=== PATIENT | female | born 1975 | race Caucasian/White ===

== ENCOUNTER 2018-06-25 21:15 | Observation (INO) ==
[2018-06-25 22:01] LABS: Basophils % 0.3 %; Eosinophils # 0.2 K/mcL (0.0-0.6); Eosinophils % 2.3 %; Hemoglobin 14.3 g/dL (11.5-15.4); Immature Granulocytes % 0.2 % (0-4); Lymphocytes # 1.9 K/mcL (0.6-4.6); Lymphocytes % 28.4 %; Mean Corpuscular HGB Conc 33.3 g/dL (31.6-35.5); Mean Corpuscular Hemoglobin 29.7 pg (28.0-33.3); Mean Corpuscular Volume 89.2 fL (83.0-100.0); Mean Platelet Volume 8.7 fL (9.4-12.4); Monocytes # 0.4 K/mcL (0.0-1.3); Monocytes % 6.1 %; Neutrophils # 4.1 K/mcL (1.6-8.9); Platelet Count 217 K/mcL (140-400); Red Blood Count 4.82 M/mcL (3.82-4.97); Red Cell Distribution Width 12.9 % (11.5-14.5); Segmented Neutrophils % 62.7 %
[2018-06-25 22:02] LABS: Bilirubin,Urine Negative (Negative); Blood,Urine Negative (Negative); Clarity,Urine Clear (Clear); Color,Urine Yellow (Yellow); Glucose,Urine (UA) Normal (Normal); Ketones,Urine Negative (Negative); Leukocyte Esterase,Urine Negative (Negative); Nitrite,Urine Negative (Negative); Protein,Urine Negative (Neg-Trace); Specific Gravity,Urine 1.021 (1.010-1.025); Urobilinogen,Urine Normal (Normal)
[2018-06-25] MEDS ORDERED: Aspirin 325 MG TABLET PO ONE (22:51)
--- NOTE | 2018-06-25 22:51 | Emergency Department Note ---
Disposition Clinical Impression: Weakness Disposition: Admitted As Inpatient Condition: Good Referrals: Vee Quiñonez DO [Primary Care Provider] - Forms: ED Satisfaction Letter Time of Disposition: 23:02 General Adult HPI - General Chief complaint: ED Neuro Symptoms/Deficit Stated complaint: weak Time Seen by Provider: 06/25/18 21:32 Source: patient Limitations: no limitations Nursing Notes Reviewed: Yes Vital Signs Reviewed: Yes - History of Present Illness HPI Narrative: Female patient presenting to the emergency department as a possible stroke a lert. Around 8:00 approximately 2 hours ago she states that she got very weak. She states her speech has slowed. She feels very tired. She had an episode of this approximately 2 days ago as well. However she states it was not a significant at that time. He denies any chest pain or shortness of breath. She denies any visual disturbances currently. She states that she is feels very tired and weak. The states that she has been ambulatory and did ambulate to a wheelchair for him to a pressure into the hospital. She does have a history of a stroke several years ago that was unprovoked and there is no known source currently. She does take gabapentin nightly for seizures. These are considered Seizures. She Also Has a History of Depression and Is on Medication for That As Well. 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 She denies any trauma. She denies being on any type of blood thinners. She denies any other fevers or chills. She denies any shortness of breath or chest pain. She denies any abdominal pain nausea vomiting or diarrhea. Pain Scale: 0 - Related Data Allergies Allergy/AdvReac Type Severity Reaction Status Date / Time No Known Allergies Allergy Verified 06/25/18 21:25 All systems ED: reviewed and negative except as stated. Review of Systems: As Per HPI Constitutional: Denies: fever, chills Eyes: Denies: vision change ENT ED: Denies: ear pain, throat pain, congestion Cardiovascular: Denies: chest pain, palpitations, syncope Respiratory: Denies: cough, dyspnea, wheezes, sputum production Gastrointestinal: Denies: abdominal pain, nausea, vomiting, diarrhea Genitourinary: Denies: urgency, dysuria, frequency, hematuria Musculoskeletal: Denies: back pain, neck pain Integumentary: Denies: rash, abrasion, lesions Neurological: Reports: weakness. Denies: headache, numbness, paresthesias Past Medical History - Past Medical History Attestation: Yes The following information was validated with the patient. Source: patient Medical history: Reports: TIA Psychiatric history: Reports: no psych history - Social History Smoking Status: Never smoker Smokeless Tobacco Status: No Alcohol use: Reports: rarely Drug use: Reports: none Physical Exam - General Limitations: no limitations General appearance: alert, in no apparent distress - Head Head exam: atraumatic, normocephalic, normal inspection - Eye Eye exam: Present: normal appearance, PERRL, EOMI - ENT ENT exam: normal exam, normal oropharynx, mucous membranes moist - Neck Neck exam: Present: normal inspection, full ROM, trachea midline - Chest Chest inspection: Present: normal inspection, symmetric chest wall rise - Respiratory Respiratory exam: Present: normal lung sounds bilaterally. Absent: respiratory distress, accessory muscle use - Cardiovascular Cardiovascular exam: Present: regular rate, normal rhythm, normal heart sounds - Abdominal Exam Abdominal exam: Present: soft, Non-Tender. Absent: tenderness, distention, guarding, rebound, rigidity, organomegaly, Griffin's sign, Rovsing's sign, tenderness at McBurney's Point - Extremities Exam Extremities exam: Present: normal capillary refill, other (lower extremities weak. normal sensation. can lift against gravity. Upper extremites witout defecit). Absent: tenderness, calf tenderness - Neurological Exam Neurological exam: Present: alert, oriented X3, other (slowed speech) - Psychiatric Psychiatric exam: Present: normal affect, normal mood - Skin Skin exam: Present: warm, dry, intact, normal color. Absent: rash Course Course Narrative: Patient has no lateralizing neurologic deficits. Cranial nerves II through XII are intact. She is mentating appropriately. She does have a fast beat nystagmus to the left and slow to the right. She does have a history of a temporal stroke. We will get basic lab workup on patient and a head CT at this time. I do not believe that she is a TPA candidate as she has no lateralizing deficits. She does have lower extremity weakness and over she attempts to raise them off the bed she can keep it raised for 10 seconds however she has 4 out of 5 muscle strength in her lower extremity. No deficits in her upper x-rays. No sensation deficits. - Reevaluation(s) Reevaluation #1: Patient reevaluated. She states that her symptoms are almost completely resolved. She states that she is about 80% back to normal. She has full range of motion of her lower extremities. Strength is 5 out of 5 in all 4 extremities. She is mentating appropriately. There is a concern on the CT for possible subacute stroke in the temporal area. Patient states this is where her previous one was as well. I did speak with the radiologist and he does not believe that it is acute as an has happened in the last 3 hours. I discussed this with the patient and she does agree for admission for follow-up MRI. This is the recommendation on the CT. We will admit at this time. Time: 22:50 - Consultations Consultation #1: Dr Parson accepted Pt in stable condition. Time: 23:27 Vital Signs Temperature 0 F L 06/25/18 21:20 Pulse Rate 78 06/25/18 21:20 Respiratory Rate 18 06/25/18 21:20 Blood Pressure 158/103 06/25/18 21:20 O2 Sat by Pulse Oximetry 100 06/25/18 21:20 Temperature 97.6 F 06/25/18 21:30 Pulse Rate 67 06/25/18 23:20 Respiratory Rate 20 06/25/18 23:20 Blood Pressure 110/72 06/25/18 23:20 O2 Sat by Pulse Oximetry 98 06/25/18 22:09 Oxygen Delivery Oxygen Delivery Room Air Medical Decision Making - Medical Records Medical records reviewed: Yes I reviewed the patient's medical records. - Lab Data Lab results reviewed: Yes I reviewed the patient's lab results. Result diagrams: 06/25/18 21:30 06/25/18 21:30 Lab Results 06/25/18 06/25/18 06/25/18 Range/Units 21:30 21:30 21:49 WBC 6.5 (4.3-11.1) K/mcL RBC 4.82 (3.82-4.97) M/mcL Hgb 14.3 (11.5-15.4) g/dL Hct 43.0 (35.3-44.9) % MCV 89.2 (83.0-100.0) fL MCH 29.7 (28.0-33.3) pg MCHC 33.3 (31.6-35.5) g/dL RDW 12.9 (11.5-14.5) % Plt Count 217 (140-400) K/mcL MPV 8.7 L (9.4-12.4) fL Immature Gran % 0.2 (0-4) % Seg Neutrophils % 62.7 % Lymphocytes % 28.4 % Monocytes % 6.1 % Eosinophils % 2.3 % Basophils % 0.3 % Neutrophils # 4.1 (1.6-8.9) K/mcL Lymphocytes # 1.9 (0.6-4.6) K/mcL Monocytes # 0.4 (0.0-1.3) K/mcL Eosinophils # 0.2 (0.0-0.6) K/mcL Basophils # 0.0 (0.0-0.2) K/mcL Sodium 138 (136-145) mEq/L Potassium 3.8 (3.5-5.1) mEq/L Chloride 103 (98-107) mEq/L Carbon Dioxide 27 (23-29) mEq/L BUN 13 (6-20) mg/dL Creatinine 0.84 (0.60-1.20) mg/dL Est GFR ( Amer) > 60 (> 60) Est GFR (Non-Af Amer) > 60 (> 60) BUN/Creatinine Ratio 15 (6-26) Glucose 87 (70-105) mg/dL Calculated Osmolality 285 (280-300) Calcium 9.2 (8.6-10.3) mg/dL Urine Color Yellow (Yellow) Urine Clarity Clear (Clear) Urine pH 7.0 (5.0-8.0) pH Units Ur Specific [place] 1.021 (1.010-1.025) Urine Protein Negative (Neg-Trace) mg/dL Urine Glucose (UA) Normal (Normal) mg/dL Urine Ketones Negative (Negative) mg/dL Urine Blood Negative (Negative) Urine Nitrite Negative (Negative) Urine Bilirubin Negative (Negative) Urine Urobilinogen Normal (Normal) mg/dL Ur Leukocyte Esterase Negative (Negative) Ur Culture Indicated? NO (NO) Urine Test (Negative) 06/25/18 Range/Units 21:49 WBC (4.3-11.1) K/mcL RBC (3.82-4.97) M/mcL Hgb (11.5-15.4) g/dL Hct (35.3-44.9) % MCV (83.0-100.0) fL MCH (28.0-33.3) pg MCHC (31.6-35.5) g/dL RDW (11.5-14.5) % Plt Count (140-400) K/mcL MPV (9.4-12.4) fL Immature Gran % (0-4) % Seg Neutrophils % % Lymphocytes % % Monocytes % % Eosinophils % % Basophils % % Neutrophils # (1.6-8.9) K/mcL Lymphocytes # (0.6-4.6) K/mcL Monocytes # (0.0-1.3) K/mcL Eosinophils # (0.0-0.6) K/mcL Basophils # (0.0-0.2) K/mcL Sodium (136-145) mEq/L Potassium (3.5-5.1) mEq/L Chloride (98-107) mEq/L Carbon Dioxide (23-29) mEq/L BUN (6-20) mg/dL Creatinine (0.60-1.20) mg/dL Est GFR ( Amer) (> 60) Est GFR (Non-Af Amer) (> 60) BUN/Creatinine Ratio (6-26) Glucose (70-105) mg/dL Calculated Osmolality (280-300) Calcium (8.6-10.3) mg/dL Urine Color (Yellow) Urine Clarity (Clear) Urine pH (5.0-8.0) pH Units Ur Specific [place] (1.010-1.025) Urine Protein (Neg-Trace) mg/dL Urine Glucose (UA) (Normal) mg/dL Urine Ketones (Negative) mg/dL Urine Blood (Negative) Urine Nitrite (Negative) Urine Bilirubin (Negative) Urine Urobilinogen (Normal) mg/dL Ur Leukocyte Esterase (Negative) Ur Culture Indicated? (NO) Urine Test Negative (Negative) - Radiology Data Radiology results reviewed: Yes I reviewed the patient's radiology results. Head CT 06/25/18 21:41 IMPRESSION: Focal area of hypoattenuation in the right temporal lobe may represent an area of encephalomalacia from remote infarct versus an acute/subacute area of infarct. MRI with diffusion-weighted imaging would be more sensitive for the evaluation of acute/subacute infarct. D/ / 06/25/2018 22:30:29 Edd Mauricio MD / sw alters Interpreting Provider: Edd Mauricio MD - EKG Data EKG #1 EKG attestation: Yes I reviewed and interpreted this EKG. EKG results narrative: Normal sinus rhythm at rate 73. IA interval is 160. QRS duration is 77. QT is 43. QTC is 445. No signs of acute ischemia. No signs of debris. We are Brug ada. Good R-wave progression. Does have low voltage. No significant change from previous EKG dated 10/07/2002. Attestation Statement - Attestation Attestation: I, Michael Kruse, examined this patient and my medical decision-making was reviewed with the PROPERTY MANAGEMENT COORDINATOR/PA/Advanced Practice Nurse/Resident Physician. I agree with the documented findings, disposition and treatment plan as described except to the extent set forth below. 43-year-old female but emergency department for evaluation of weakness and altered mental status. Patient states she was sitting at work when she had acute onset of weakness, generalized pain and sweaty palms. During the evaluation the patient is speaking slowly but does not have difficulty finding words, she has no focal neurologic deficits on the exam. Pupils were equal and reactive to light and have full extraocular range of motion. Patient states she has had multiple episodes similar to this however this one has lasted longer than previous episodes. She denies a specific trigger for her previous episodes. She states that she was not anxious or agitated prior to the onset of symptoms. Denies recent trauma, fevers, chills, EtOH or IV drug abuse. We obtained a CT of the head which showed likely previous CVA which the patient admitted to having on previous scans. Patient continues to have no focal neurologic deficits. She will be admitted to the hospital for further care and evaluation. NIH Stroke Scale - Level of Consciousness LOC: Alert - LOC Questions LOC Questions: Answers both correctly - LOC Commands LOC Commands: Performs both correctly - Best Gaze Best Gaze: Normal - Visual Visual: No visual loss - Facial Palsy Facial Palsy: Normal - Motor Arms Motor Arm-Left: No drift for 10 seconds Motor Arm-Right: No drift for 10 seconds - Motor Legs Motor Leg-Left: No drift for 5 seconds Motor Leg-Right: No drift for 5 seconds - Limb Ataxia Limb Ataxia: Normal, No Ataxia - Sensory Sensory: Normal - Best Language Best Language: No aphasia - Dysarthria Dysarthria: Normal - Extinction and Inattention Extinction and Inattention: Normal - NIHSS Total Score NIHSS Total Score: 0
[2018-06-25 23:22] LABS: BUN/Creatinine Ratio 15 (6-26); Blood Urea Nitrogen 13 mg/dL (6-20); Calcium 9.2 mg/dL (8.6-10.3); Carbon Dioxide 27 mEq/L (23-29); Chloride 103 mEq/L (98-107); Glucose 87 mg/dL (70-105); Osmolality,Calculated 285 (280-300); Potassium 3.8 mEq/L (3.5-5.1); Sodium 138 mEq/L (136-145); eGFR For Non-African Americans > 60 (> 60)
[2018-06-25] MEDS ORDERED: Gadolinium Contrast Agent (WT Based) IV PRN (23:40)
--- NOTE | 2018-06-25 23:55 | Internal Med History&Physical ---
Date of Encounter: 06/25/18 Time of Encounter: 23:55 Internal Medicine - H&P: HPI Chief complaint: weakness Admitted From: Home Plans for Post Hospital Care: Home History of present illness: Ms. Hopkins is a 43 year old woman who reports a history of depression, absence seizures for which she takes gabapentin at night time? as well as being diagnosed with a stroke many years ago when she was being evaluated for "spells ". She presents now to the emergency department as a possible stroke alert. Around 8:00pm while at work she states that she got very weak. She states her speech has slowed. She felt overly fatigued and shaky with cold sweats. She reported having a similar episode 2 days prior but not as severe. On arrival here it is reported that she had slow but not slurred speech but there were no focal deficits. Her vitals were within normal limits. Head CT was done which showed an area of encephalomalacia which correlates with her old stroke however they were unable to rule out an acute or subacute area of infarction overlying the area of encephalomalacia as per discussion with the radiologist and therefore recommended pursuing an MRI. On my assessment she is sitting up in bed in no acute distress or reports feeling back to baseline. She denies chest pain, dyspnea, fever, chills, headache, lightheadedness or dizziness. Ordered no visual, olfactory or auditory hallucinations. She denies having any focal weaknesses at any point in time stating that she just felt her whole body: Weak all of a sudden. She is admitted for ongoing observation. Past medical history as indicated above. Social history: denies smoking and illicit drug use. Surgical history: Hysterectomy due to endometriosis. Family history: CVA maternal aunt and grandmother. All systems reviewed and negative except as indicated above. Past Med Surg Social Fam HX - Past Medical History Medical history: TIA Psychiatric history: no psych history - Social History Smoking Status: Never smoker Smokeless Tobacco Status: No Alcohol use: rarely Drug use: none - Family History Mother Living Status: Still Living Maternal Grandmother Hx Family Neuromuscular Disorders: Yes (stroke) Hx Family Neurologic Disorders: Yes Internal Medicine - H&P: Meds Gabapentin [Neurontin] 200 mg PO HS 06/25/18 [History] Sertraline [Zoloft] 100 mg PO DAILY 06/25/18 [History] Allergy/AdvReac Type Severity Reaction Status Date / Time No Known Allergies Allergy Verified 06/25/18 21:25 All Systems PM: A 10-system review of systems was performed and is negative for pertinent findings except as documented above in the HPI. - Constitutional Vitals: Temp Pulse Resp BP Pulse Ox 97.6 F 67 20 110/72 98 06/25/18 21:30 06/25/18 23:20 06/25/18 23:20 06/25/18 23:20 06/25/18 22:09 Exam: Vitals: Reviewed General: Well-developed white female in NAD Skin: Warm and supple HEENT: Moist mucous membranes. No conjunctivae pallor. Neck: No lymphadenopathy. No JVD. No carotid bruits. No palpable thyroid. Chest: Normal thoracic expansion. Normal breath sounds. Clear to auscultation. Heart: Normal S1 & S2; rhythmic. No rubs or murmurs. Abdomen: Non-distended, soft and non-tender to palpation. No peritoneal reaction. Extremities: No clubbing, cyanosis or edema. No calf tenderness. Normal distal pulses. Neurological: Awake, alert and oriented to person, place and time. No focal deficits. Psych: Affect appropriate. Internal Med - H&P Results - Labs CBC & Chem 7: 06/25/18 21:30 06/25/18 21:30 Labs: Short CBC 06/25/18 Range/Units 21:30 WBC 6.5 (4.3-11.1) K/mcL Hgb 14.3 (11.5-15.4) g/dL Hct 43.0 (35.3-44.9) % Plt Count 217 (140-400) K/mcL Neutrophils # 4.1 (1.6-8.9) K/mcL BMP 06/25/18 21:30 Sodium 138 Potassium 3.8 Chloride 103 Carbon Dioxide 27 BUN 13 Creatinine 0.84 Glucose 87 Calcium 9.2 Urine 06/25/18 Range/Units 21:49 Urine Color Yellow (Yellow) Urine Clarity Clear (Clear) Urine pH 7.0 (5.0-8.0) pH Units Ur Specific [place] 1.021 (1.010-1.025) Urine Protein Negative (Neg-Trace) mg/dL Urine Glucose (UA) Normal (Normal) mg/dL - Impressions ITS Impressions Head CT 06/25/18 21:41 IMPRESSION: Focal area of hypoattenuation in the right temporal lobe may represent an area of encephalomalacia from remote infarct versus an acute/subacute area of infarct. MRI with diffusion-weighted imaging would be more sensitive for the evaluation of acute/subacute infarct. D/ / 06/25/2018 22:30:29 Edd Mauricio MD / anna Interpreting Provider: Edd Mauricio MD - Assessment and plan (1) Weakness Current Visit: Yes Status: Acute Assessment and plan: Unclear etiology; the symptoms are not highly suggestive of a focal infarction although based on her history her prior stroke was equally detected with atypical symptoms. Hypoglycemia which appears more consistent as ruled out with a normal glucose level and her symptoms resolved without needing dextrose. It does not appear to have been a seizure episode as well as she was aware of the situation. MRA head and neck and brain MRI is ordered for tomorrow for better assessment. If negative can be followed by neurology as an outpatient otherwise if there is an acute finding we shall need their input here in the hospital. (2) Mood disorder Current Visit: Yes Status: Acute Assessment and plan: We will continue sertraline daily. (3) History of seizure Current Visit: Yes Status: Acute Assessment and plan: The patient reportedly takes gabapentin at that time for this issue which she describes as episodes of unawareness. (4) History of CVA (cerebrovascular accident) Current Visit: Yes Status: Acute Assessment and plan: Area of encephalomalacia correlating with a prior infarction is noted on CAT sca n. It appears to have been cryptogenic in origin. She is not on any antiplatelet therapy and there is no history of any cardiac anatomic anomalies. (5) DVT prophylaxis Current Visit: Yes Status: Acute Assessment and plan: Subcutaneous heparin is indicated. - Time Spent With Patient Total time spent is greater than 50% in coordination of care (as documented) at patient's floor/unit and/or counseling patient: Greater than 35 minutes
[2018-06-26] MEDS: Gabapentin 100 MG CAPSULE PO SCH ×2 (00:40→21:01)
[2018-06-26 05:33] LABS: Alanine Aminotransferase 50 Units/L (7-52); Albumin 3.9 g/dL (3.5-5.7); Albumin/Globulin Ratio 1.4 (1.1-2.2); Alkaline Phosphatase 70 Units/L (34-104); Aspartate Amino Transferase 31 Units/L (13-39); BUN/Creatinine Ratio 17 (6-26); Bilirubin,Total 0.3 mg/dL (0.3-1.0); Blood Urea Nitrogen 15 mg/dL (6-20); Calcium 9.1 mg/dL (8.6-10.3); Carbon Dioxide 31 mEq/L (23-29); Chloride 103 mEq/L (98-107); Cholesterol 199 mg/dL (< 200); Globulin 2.7 g/dL (2.4-3.5); Glucose 92 mg/dL (70-105); HDL Cholesterol 67 mg/dL (40-59); LDL Cholesterol,Calculated 98 mg/dL (0-99); Osmolality,Calculated 292 (280-300); Potassium 4.1 mEq/L (3.5-5.1); Sodium 141 mEq/L (136-145); Total Protein 6.6 g/dL (6.4-8.9); Triglycerides 170 mg/dL (< 150); eGFR For Non-African Americans > 60 (> 60)
[2018-06-26] MEDS: *HR* Heparin 5,000 UNIT/ML VIAL SQ SCH ×3 (05:53→21:01)
[2018-06-26 08:10] LABS: Estimated Average Glucose 105 mg/dl; Hemoglobin A1C 5.3 %
[2018-06-26] MEDS: Aspirin Enteric Coated 81 MG Tablet PO SCH (10:52)
[2018-06-26] MEDS: amLODIPine 5 MG TABLET PO SCH (10:52)
--- NOTE | 2018-06-26 14:52 | Electrocardiograph Report ---
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
[2018-06-26] MEDS ORDERED: Acetaminophen 325 MG TABLET PO PRN (17:39)
--- NOTE | 2018-06-26 18:08 | Neurology - Consult Note ---
Date of Encounter: 06/26/18 Time of Encounter: 17:03 Assessment and Plan (1) Generalized muscle weakness Current Visit: Yes Status: Acute This patient who had an history of previous a stroke and seizures admitted with this generalized weakness started yesterday all of a sudden gradually improving currently her upper extremity weakness has resolved but she still feeling weak in the lower extremities The symptoms seems to be more generalized without any focal findings on neurological examination in particularly no history or exam findings to be sugge stive of a stroke She already had an MRI of the brain as well as MRA of the head and neck did not show any acute infarct it did shows evidence of previous infarct that she had it about 4 years ago As far as her current symptoms seems to be more generalized Certainly with generalized weakness and some paresthesias Guillain-Lufkin syndrome/GBS Is in the differential but at the moment exam findings especially with normal reflexes seems to be less likely, But as her symptoms started yesterday we still have to keep an eye on the symptoms so it would not get worse Though usually the course is not as rapid and at the same time with improvement of symptoms in the upper extremity it seems to be less likely But again it might be too early to definitely exclude this possibility out *Would suggest that we should continue to monitor her at the same time continue to monitor her breathing her respiratory status At the moment she is not having any symptoms of breathing or any other cranial nerve dysfunction. 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 Hopkins is a 43 year old female with history of depression, absence seizures, cryptogenic a stroke about 4 years ago without any residual deficit Admitted via emergency department because of generalized weakness According to the patient she was at work at the [employer] and around 8 PM last night she noted that she is been very weak she was having difficulty with talking as she was talking very slow but it was not slurred she was having hard time in holding onto things and noted to have generalized weakness without much focal motor symptoms because of the symptoms she called her who picked her up from the hospital and then later on she was evaluated in the emergency room by the time she got to the emergency room she she got more weaker and felt shaky and had cold sweats. She had a CT scan that shows an old lady of infarct and later on she had an MRI of the brain that did not show any acute infarct did shows evidence of encephalomalacia in the right temporal lobe. She had a previous infarct She continued to have these generalized to weakness but without any focal motor weakness she denies any double vision she denies any difficulty with swallowing she did have some numbness and paresthesias but not very prominent her weakness is more generalized now her upper extremities weakness has improved she still having some weakness in the lower extremities And has a history of flow cryptogenic infarct about 4 years ago when she was evaluated in [place] on imaging studies she was found to have an infarct she did not have any residual deficit from it patient also has some abscense Seizures, seen Dr. Thorntno in [place] , who started her on gabapentin and she been taking at night and since that she did not have any further seizures. She denies any recent illness and particularly no cold and flu symptoms She did have a similar spell about a week ago which lasted several hours and then resolving spontaneously Past Med Surg Social Fam HX - Past Medical History Medical history: TIA Psychiatric history: no psych history - Past Surgical History Surgical History: hysterectomy - Social History Smoking Status: Never smoker Smokeless Tobacco Status: No Alcohol use: rarely Drug use: none - Family History Mother Living Status: Still Living Maternal Grandmother Hx Family Neuromuscular Disorders: Yes (stroke) Hx Family Neurologic Disorders: Yes Medications and Allergies Gabapentin [Neurontin] 200 mg PO HS 06/25/18 [History] Sertraline [Zoloft] 100 mg PO DAILY 06/25/18 [History] Allergy/AdvReac Type Severity Reaction Status Date / Time No Known Allergies Allergy Verified 06/25/18 21:25 All Systems: The remainder of the systems were reviewed and are negative Physical Examination - Vital Signs Vital Signs: Initial Vital Signs Temp Pulse Resp BP Pulse Ox 0 F L 78 18 158/103 100 06/25/18 21:20 06/25/18 21:20 06/25/18 21:20 06/25/18 21:20 06/25/18 21:20 - Exam Exam: GENERAL: Comfortable in no acute distress HEENT: Normal LUNGS: CTA HEART: RRR, S1 S2 Audible, no murmur EXTREMITIES: No Pedal edema. DETAILED NEUROLOGICAL EXAMINATION: MENTAL STATUS: Oriented to person, place, date and situation. Memory: knows the President, Aware of recent events Recent Memory Intact Cranial Nerve Examination: CN - II: Visual Acuity, Field of Vision Normal, Fundus examination: No disk edema, Pupils- size shape reaction to light and accommodation: All normal. CN III, IV, : External ocular movements were intact, Pupils were reactive, Nodrooping of the eyelids CN V: Sensation over the face to light touch and pinprick all normal. Corneal reflexes not tested, jaw jerk normal. CN VII: No facial asymmetry, no flattening of nasolabial folds, no difficulty in closing the eyes, no loss of forehead wrinkles, no difficulty in eye-closure, frowning raising eyebrows. CNVIII: No significant hearing loss CN IX, X: Uvula centralized not deviated, Gag reflex: Not tested CN X1: Sternocleidomastoid, trapezius, normal or evidence of any weakness. CN X11: No Dysarthria, no wasting or fibrilation f tongue muscles, no deviation, tongue muscle strength normal. Motor examination: No hypertrophy, tone was normal, power grade 0-5 Upper limbs Proximal- No difficulty in lifting the arms above the head. Distal- No weakness in distal muscles On formal testing 5/5 all over Lower limbs On formal testing decrease in the strength 4/4 but without any focal findings Coordination: [id number] normal. Target pursuit normal finger tapping normal, Rapid alternating moment of wrist normal Sensory system: Superficial sensations- Touch normal. Pain- Pinprick, Temperature all normal, Deep sensation normal, Joint position sense normal. Cortical sensation, Tactile discrimination, localization and extinction all normal. Deep tendon reflexes. Symmetrical bilateral and brisk at the knees 1/1 at the ankles, No evidence of Babinski. No sign of meningeal irritation Gait Examination: Deferred - Constitutional General appearance: comfortable - Neurologic Sensorimotor examination: intact Detailed motor examination: grossly full strength in all extremities Motor examination - right side: 4/5: hip flexors, tibialis Anterior, quadriceps, toe extension (EHL), plantarflexion, 5/5: deltoids, biceps, triceps, wrist flexion, wrist extension, herpetology teacher Motor examination - left side: 4/5: hip flexors, herpetology teacher, quadriceps, 5/5: deltoids, biceps, triceps, wrist flexion, wrist extension, tibialis Anterior, toe extension (EHL), plantarflexion Detailed sensory examination: intact Reflex and gait examination: intact Reflexes: Biceps: 1+, Triceps: 1+, Brachioradialis: 1+, Patella: 2+, Achilles: 1 + Mental Status Examination: awake, alert, oriented to person, oriented to place, oriented to time, follows commands appropriately, answers questions appropriately, no agnosia, no aphasia, no aproxia Cranial nerve examination: PERRL, EOMI, visual talavera intact, corneal reflexes brisk symmetrically, sensory to face intact, mastication intact, no facial asymmetry is present, no dysarthria, hearing is intact symmetrically, soft palate elevates bilaterally upon phonation, gag reflex intact, flexes SCM and trapezius muscles symmetrically with full power, tongue protrudes midline, no atrophy or facial fasiculations present Cerebellar examination: no dysmetria Results - Laboratory Findings CBC and BMP: 06/25/18 21:30 06/26/18 04:35 Abnormal lab findings: Abnormal lab results MPV 8.7 fL (9.4-12.4) L 06/25/18 21:30 Carbon Dioxide 31 mEq/L (23-29) H 06/26/18 04:35 POC Glucose 101 mg/dL (70-99) H 06/25/18 21:21 Triglycerides 170 mg/dL (< 150) H 06/26/18 04:35 VLDL Cholesterol, Calc 34 mg/dL (< 31) H 06/26/18 04:35 HDL Cholesterol 67 mg/dL (40-59) H 06/26/18 04:35 - Diagnostic Findings Additional findings: MRI of the brain shows Encephalomalacia and gliosis are noted along the right superior and middle temporal gyri, along the superior temporal sulcus. 2. No evidence of an acute infarct. 3. Minimal chronic microvascular white matter ischemic disease, increased. 4. Unremarkable MRA of the neck. 5. Unremarkable MRA of the brain. Consult Discharge Plan - Plan Referrals: Vee Quiñonez DO [Primary Care Provider] - (Your appointment has been requested. Our offices will call you with an appointment time and date.)
[2018-06-26 19:43] LABS: Thyroid Stimulating Hormone 1.952 mcIU/mL (0.340-5.600)
[2018-06-26 19:53] LABS: Folate 8.2 ng/mL (3.0-16.0)
[2018-06-27] MEDS: *HR* Heparin 5,000 UNIT/ML VIAL SQ SCH (05:33)
[2018-06-27 07:51] VITALS: BP 106/64
[2018-06-27] MEDS: Aspirin Enteric Coated 81 MG Tablet PO SCH (10:00)
[2018-06-27] MEDS: amLODIPine 5 MG TABLET PO SCH (10:00)
--- NOTE | 2018-06-27 10:23 | Neurology Progress Note ---
Addendum entered and electronically signed by Faisal Hart DO 06/30/18 13:39: please delete this note. Attending did not see the patient before patient was discharged. Original Note: Date of Encounter: 06/27/18 Time of Encounter: 10:21 Assessment and Plan (1) Generalized muscle weakness Current Visit: Yes Status: Resolved Today patient's strength exam shows improved strength in all 4 extremities. Pat nina also denies numbness or difficulty eating. She is breathing without any distress and not requiring any oxygen. MRA of the neck, brain are unremarkable. Brain MRI is negative for acute infarct. There is noted encephalomalacia and gliosis of the right superior middle temporal gyri along the superior temporal sulcus. (2) History of seizure Current Visit: Yes Status: Chronic Continue medication. (3) History of CVA (cerebrovascular accident) Current Visit: Yes Status: Chronic (4) DVT prophylaxis Current Visit: Yes Status: Chronic Subjective Principal diagnosis: Generalized muscle weakness Interval history: Patient reports that her generalized weakness has improved. She is able to lift bilateral upper and lower extremities. 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 She denies any numbness. She is able to eat without having dysphagia, regurgitation. She denies any shortness of breath or difficulty breathing. Objective - Constitutional Vitals: Temp Pulse Resp BP Pulse Ox 97.5 F L 62 18 106/64 94 06/27/18 07:40 06/27/18 07:40 06/27/18 07:40 06/27/18 07:40 06/27/18 07:40 - Neurological Exam Sensorimotor examination: Present: intact Motor Examination: Present: grossly full strength in all extremities Motor examination - right side: 4/5: deltoids, biceps, triceps, wrist flexion, wrist extension, collating machine operator, hip flexors, tibialis Anterior, quadriceps, toe extension (EHL), plantarflexion Motor examination - left side: 4/5: deltoids, biceps, triceps, wrist flexion, wrist extension, hip flexors, collating machine operator, quadriceps, tibialis Anterior, toe extension (EHL), plantarflexion Sensation intact: Present: intact Reflex and gait examination: intact Reflexes: Biceps: 2+, Triceps: 2+, Brachioradialis: 2+, Patella: 2+, Achilles: 2+ Mental Status Examination: Present: awake, alert, oriented to person, oriented to place, oriented to time, follows commands appropriately, answers questions appropriately, no agnosia, no aphasia, no aproxia Cranial nerve examination: Present: PERRL, EOMI, visual talavera intact, sensory to face intact, mastication intact, no facial asymmetry is present, no dysarthri a, hearing is intact symmetrically, soft palate elevates bilaterally upon phonation, flexes SCM and trapezius muscles symmetrically with full power, tongue protrudes midline, no atrophy or facial fasiculations present Cerebellar examination: Present: no dysmetria Results - Laboratory Findings CBC and BMP: 06/25/18 21:30 06/26/18 04:35 Abnormal lab findings: Abnormal lab results MPV 8.7 fL (9.4-12.4) L 06/25/18 21:30 Carbon Dioxide 31 mEq/L (23-29) H 06/26/18 04:35 Triglycerides 170 mg/dL (< 150) H 06/26/18 04:35 VLDL Cholesterol, Calc 34 mg/dL (< 31) H 06/26/18 04:35 HDL Cholesterol 67 mg/dL (40-59) H 06/26/18 04:35 25-OH Vitamin D Total 26 ng/mL (30-80) L 06/26/18 18:35 Consult Discharge Plan - Plan Referrals: Vee Quiñonez, [Primary Care Provider] - (Your appointment has been requested. Our offices will call you with an appointment time and date.)
--- NOTE | 2018-06-27 10:58 | Discharge Summary ---
Orders not resulted at time of discharge: Pending orders 06/27/18 00:55 Lupus Anticoagulant Panel Stat Date of Encounter: 06/27/18 Time of Encounter: 10:53 - Discharge Diagnosis (1) Generalized muscle weakness Priority: Primary Status: Resolved (2) History of seizure Priority: Secondary Status: Chronic (3) History of CVA (cerebrovascular accident) Priority: Secondary Status: Chronic (4) DVT prophylaxis Priority: Secondary Status: Chronic Hospital course: Ms. Hopkins is a 43 year old female history of depression, absence seizures, CVA about a year ago. Patient presented to the emergency room complaining of generalized weakness, and slow speech. She reported that about a week ago she had a similar episode of generalized fatigue, but it did not last as long as this one and she decided to come to the ED. Patient work up for possible CVA. Brain MRI, head and neck MRA done negative for acute stroke. Discussed with neurologist and agreed on discharging the patient as her symptoms have resolved. Patient is hemodynamically stable to be discharged home. - Time Spent with Patient Total time spent providing and/or coordinating discharge services: - Discharge Medications Home Medications: Gabapentin [Neurontin] 200 mg PO HS 06/25/18 [History] Sertraline [Zoloft] 100 mg PO DAILY 06/25/18 [History] Estradiol [Estrace] 1 mg PO DAILY 06/26/18 [History] Allergies/Adverse Reactions: Allergy/AdvReac Type Severity Reaction Status Date / Time No Known Allergies Allergy Verified 06/25/18 21:25 Date of admission: 06/25/18 23:35 Primary care physician: Atul Miles Consults: 06/26/18 16:58 Consult to Neurology [CONS] Routine Consulting Provider: Neurology [facility] Reason for Consult: abnormal MRI MRA generalized weakness HX of CVA Time Notified: 16:59 Call Completed: Yes - Constitutional Vitals: Temp Pulse Resp BP Pulse Ox 97.5 F L 62 18 106/64 94 06/27/18 07:40 06/27/18 07:40 06/27/18 07:40 06/27/18 07:40 06/27/18 07:40 Exam: General: Patient is alert, oriented, no acute distress, speaks in full sentences Head: atraumatic, normocephalic, Eye: normal appearance, PERRL, no scleral icterus, no conjunctival injection ENT: mucous membranes moist, normal external ear exam Respiratory: Good respiratory effort. Clear to auscultation bilaterally, no wheezing rales or crackles. Cardiovascular: RRR, Normal s1 and s2, No rubs, gallops, or murmors. Abdomen: Obese, Bowel sounds present normoactive x-4 quadrants. Abdomen is soft, nondistended. No guarding or rebound. Musculoskeletal: Reflexes 2+, Spontaneously moving all extremities. no edema, no calf tenderness Skin: warm, dry, intact. Neuro: Alert and oriented x4. Sensation light touch intact. Cranial nerves 2- 12 is intact. Not aphasic, gait is steady, rapid hand movements intact, [id number] intact, Psych: Patient's affect is normal - Patient Status Disposition: Home, Self-Care Condition: Good Functional capacity at discharge: independent ambulation Overall status at discharge: patient is back to baseline - Discharge Instructions Follow Up With: Vee Quiñonez DO [Primary Care Provider] - (Your appointment has been requested. Our offices will call you with an appointment time and date.) - Diet and Activity Activity: resume usual activities as tolerated Diet: advance to your usual diet
[2018-06-29 22:39] LABS: APTT (LE Anticoag) 44 sec (32-48); Diluted Russell Viper Venom 30 sec (33-44); PT (LE-Anticoag) 12.5 sec (12.0-15.5)
== END 2018-06-27 13:28 | disposition home or self-care (01) ==
LOC: 3BNU 21:15 → EMEROOARM 21:15 → 3BNU 23:54
PROVIDERS: ADMIT Internal Medicine; ATTEND Internal Medicine